=== PATIENT | female | born 1985 ===

== ENCOUNTER 2019-09-03 21:41 | Observation (INO) | payer OTHER ==
[2019-09-03] MEDS ORDERED: ONDANSETRON 4 MG/2 ML VIAL ONE (22:16)
[2019-09-03] MEDS ORDERED: NA CHLORIDE 0.9% 1,000 ML ONE (22:16)
[2019-09-03 22:26] LABS: Absolute Lymphocytes (CBC) 2.4 K/uL (0.7-4.9); Hematocrit 44.7 % (36.0-45.0); Lymphocytes % 23.4 % (15.3-44.8); MPV 8.5 fL (7.6-11.3); RBC Red Blood Cell Count 4.68 M/uL (3.86-4.86)
[2019-09-03] MEDS ORDERED: MORPHINE 4 MG/ML SYR ONE (22:36)
[2019-09-03 22:43] LABS: Albumin 4.2 g/dL (3.4-5.0); Bilirubin Direct 0.1 mg/dL (0-0.2); Bilirubin Total 0.7 mg/dL (0.2-1.0); Potassium 3.4 mmol/L (3.5-5.1); Protein, Total 7.9 g/dL (6.4-8.2)
[2019-09-03 23:05] LABS: Urine Blood NEGATIVE (NEG); Urine Glucose NEGATIVE (NEG); Urine Protein NEGATIVE (NEG); Urine Specific Gravity 1.015 (1.005-1.030); Urine pH 8.5 (5.0-7.0)
--- NOTE | 2019-09-04 00:47 | ER ---
Nurse's Notes [facility] Name: Ting Ohara Age: 33 yrs Sex: Female : 1985 Arrival Date: 09/03/2019 Time: 21:52 Bed 2 Private MD: Diagnosis: Acute appendicitis Presentation: 09/03 21:55 Presenting complaint: Patient states: THIS MORNING I STARTED TO FEEL WEIRD THIS MORNING rv WITH MY BELLY. I JUST ATE BREAKFAST HOPING IT WILL GO AWAY. BUT THE PAIN GOT WORSE ALL THROUGHOUT THE DAY. THE PAST HOUR SHE THREW UP THREE TIMES ALREADY. Transition of care: patient was not received from another setting of care. Onset of symptoms was September 03, 2019 at 09:00. Risk Assessment: Do you want to hurt yourself or someone else? Patient reports no desire to harm self or others. Initial Sepsis Screen: Does the patient meet any 2 criteria? No. Patient's initial sepsis screen is negative. Does the patient have a suspected source of infection? No. Patient's initial sepsis screen is negative. Care prior to arrival: None. 21:55 Method Of Arrival: Ambulatory 21:55 Acuity: ZEN 3 rv Triage Assessment: 22:02 General: Appears in no apparent distress. uncomfortable, Behavior is calm, cooperative. rv Pain: Complains of pain in left upper quadrant, right lower quadrant and left lower quadrant. EENT: No signs and/or symptoms were reported regarding the EENT system. Neuro: Level of Consciousness is awake, alert, obeys commands, Oriented to person, place, time, situation. Cardiovascular: Patient's skin is warm and dry. Respiratory: Airway is patent. GI: Abdomen is flat, Reports lower abdominal pain, upper abdominal pain. : No signs and/or symptoms were reported regarding the genitourinary system. Derm: Skin is intact. Musculoskeletal: No signs and/or symptoms reported regarding the musculoskeletal system. 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 - Social history:: Smoking status: Patient uses tobacco products, 5 STICKS A DAY. - Ebola Screening: : No symptoms or risks identified at this time. Screenin:03 Abuse screen: Denies threats or abuse. Denies injuries from another. Nutritional rv screening: No deficits noted. Tuberculosis screening: No symptoms or risk factors identified. Fall Risk None identified. Assessment: 22:00 General: Appears uncomfortable, Behavior is appropriate for age. Pain: Complains of lp1 pain in left lower quadrant Pain currently is 10 out of 10 on a pain scale. Quality of pain is described as sharp, Pain began gradually, Is continuous, Noted to be grimacing. Neuro: Level of Consciousness is awake, alert, obeys commands. Cardiovascular: Patient's skin is warm and dry. Respiratory: Respiratory effort is even. : No signs and/or symptoms were reported regarding the genitourinary system. EENT: No signs and/or symptoms were reported regarding the EENT system. Derm: Skin is pink, warm \T\ dry. Musculoskeletal: No deficits noted. 22:04 GI: rv 23:15 Reassessment: Patient appears in no apparent distress at this time. Patient and/or lp1 family updated on plan of care and expected duration. Pain level reassessed. 09/04 00:15 Reassessment: Patient and/or family updated on plan of care and expected duration. Pain lp1 level reassessed. Patient states abdominal pain tolerable at this time; Informed of waiting for CT results. 01:06 Reassessment: Patient aware of pending admission;. Pain: Complains of pain in left lp1 lower quadrant Pain currently is 4 out of 10 on a pain scale. Derm: Skin is pink, warm \T\ dry. Vital Signs: 09/03 21:58 BP 119 / 73; Pulse 67; Resp 16; Temp 98.7; Pulse Ox 98% ; Weight 60 kg; Height 5 ft. 2 rv in. (160 cm); Pain 9/10; 23:31 BP 117 / 65; Pulse 56; Resp 16; Pulse Ox 96% on R/A; lp1 09/04 00:28 BP 106 / 62; Pulse 61; Resp 16; Pulse Ox 99% on R/A; lp1 01:06 BP 118 / 65; Pulse 60; Resp 16; Pulse Ox 99% on R/A; Pain 4/10; lp1 09/03 21:58 Body Mass Index 23.44 (60.00 kg, 160 cm) rv ED Course: 09/03 21:52 Patient arrived in ED. cf2 21:58 Triage completed. rv 22:02 Avtar Montelongo PA is PHCP. jmm 22:02 Cesar Burton MD is Attending Physician. jmm 22:03 Patient has correct armband on for positive identification. Placed in gown. Bed in low rv position. Call light in reach. Side rails up X 1. Adult w/ patient. Pulse ox on. NIBP on. 22:03 Patient placed in the treatment room, on a stretcher, on pulse oximetry, Patient rv notified of wait time. 22:04 Tita Kemp, CARL is Primary Nurse. lp1 22:10 Inserted saline lock: 20 gauge in right antecubital area, using aseptic technique. lp1 Blood collected. 22:35 Radiology exam delayed due to lab results not completed at this time. (BUN/Creatinine). nj 23:06 CT Abd/Pelvis - IV Contrast Only In Process Unspecified. EDMS 09/04 00:46 Jose Leiva MD is Hospitalizing Provider. [facility] 01:05 No provider procedures requiring assistance completed. Patient admitted, IV remains in lp1 place. Administered Medications: 09/03 22:22 Drug: Zofran 4 mg Route: IVP; Site: right antecubital; lp1 23:00 Follow up: Response: Marked relief of symptoms lp1 22:43 Drug: morphine 4 mg {Note: RASS 1.} Route: IVP; Site: right antecubital; lp1 23:00 Follow up: Response: Marked relief of symptoms lp1 22:44 Drug: NS 0.9% 1000 ml Route: IV; Rate: 1 bolus; Site: right antecubital; lp1 09/04 01:07 Follow up: IV Status: Completed infusion; IV Intake: 1000ml lp1 01:04 Drug: fentaNYL (PF) 25 mcg Route: IVP; Site: right antecubital; lp1 01:20 Follow up: Response: No adverse reaction; RASS: Alert and Calm (0) lp1 01:04 Drug: Zosyn 3.375 grams Route: IVPB; Infused Over: 60 mins; Site: right antecubital; lp1 01:21 Follow up: IV Status: Infusion continued upon admission lp1 Intake: 01:07 IV: 1000ml; Total: 1000ml. lp1 Outcome: 00:46 Decision to Hospitalize by Provider. [place] 01:05 Condition: stable lp1 01:05 Instructed on the need for admit. 01:19 Admitted to Tele via wheelchair, room 409, with chart, Report called to CARL Dodd lp1 01:44 Patient left the ED. lp1 Signatures: Dispatcher [employer] EDMS Avtar Montelongo PA PA jmm Pena, Laura, RN RN lp1 Gilmar Stanley Ronaldo RN RN Yuko Quintana 2
--- NOTE | 2019-09-04 00:48 | EDPHYS ---
Physician Documentation [facility] Name: Ting Ohara Age: 33 yrs Sex: Female : 1985 Arrival Date: 09/03/2019 Time: 21:52 Bed 2 Private MD: ED Physician Cesar Burton HPI: 09/03 22:05 This 33 yrs old Unknown Female presents to ER via Ambulatory with complaints of m Abdominal Pain. 22:05 The patient presents with abdominal pain. Onset: The symptoms/episode began/occurred jm gradually, today. The symptoms do not radiate. Associated signs and symptoms: Pertinent positives: nausea and vomiting. Modifying factors: The symptoms are alleviated by nothing, the symptoms are aggravated by alcohol, nothing. This is a 42 year old female with no chronic medical conditions that presents to the ED with complaints of left lower abdominal pain beginning this morning and worsening throughout the day. Denies history of ovarian cysts or intraabdominal surgeries. . 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 - Social history:: Smoking status: Patient uses tobacco products, 5 STICKS A DAY. - Ebola Screening: : No symptoms or risks identified at this time. ROS: 22:05 Constitutional: Negative for fever, chills, and weight loss, Cardiovascular: Negative jmm for chest pain, palpitations, and edema, Respiratory: Negative for shortness of breath, cough, wheezing, and pleuritic chest pain. 22:05 Abdomen/GI: Positive for abdominal pain. 22:05 All other systems are negative. Exam: 22:05 Head/Face: atraumatic. Eyes: EOMI, no conjunctival erythema appreciated ENT: Moist jmm Mucus Membranes Neck: Trachea midline, Supple Chest/axilla: Normal chest wall appearance and motion. Cardiovascular: Regular rate and rhythm. No edema appreciated Respiratory: Normal respirations, no respiratory distress appreciated 22:05 Back: Normal ROM Skin: General appearance color normal MS/ Extremity: Moves all extremities, no obvious deformities appreciated, no edema noted to the lower extremities Neuro: Awake and alert, normal gait Psych: Behavior is normal, Mood is normal, Patient is cooperative and pleasant 22:05 Constitutional: The patient appears alert, awake, uncomfortable. 22:05 Abdomen/GI: Inspection: abdomen appears normal, Bowel sounds: normal, Palpation: nontender, moderate abdominal tenderness, in the left lower quadrant. 22:05 Back: ROM is normal. Vital Signs: 21:58 BP 119 / 73; Pulse 67; Resp 16; Temp 98.7; Pulse Ox 98% ; Weight 60 kg; Height 5 ft. 2 rv in. (160 cm); Pain 9/10; 23:31 BP 117 / 65; Pulse 56; Resp 16; Pulse Ox 96% on R/A; lp1 09/04 00:28 BP 106 / 62; Pulse 61; Resp 16; Pulse Ox 99% on R/A; lp1 01:06 BP 118 / 65; Pulse 60; Resp 16; Pulse Ox 99% on R/A; Pain 4/10; lp1 09/03 21:58 Body Mass Index 23.44 (60.00 kg, 160 cm) rv MDM: 09/03 22:06 Patient medically screened. [facility] 09/04 00:12 Data reviewed: vital signs, nurses notes. [facility] 00:45 Counseling: I had a detailed discussion with the patient and/or guardian regarding: the [facility] historical points, exam findings, and any diagnostic results supporting the discharge/admit diagnosis, lab results, radiology results, the need for further work-up and treatment in the hospital. 09/03 22:05 Order name: Basic Metabolic Panel; Complete Time: 22:44 [facility] 09/03 22:05 Order name: CBC with Diff; Complete Time: 22:36 [facility] 09/03 22:05 Order name: Creatinine for Radiology; Complete Time: 22:44 [facility] 09/03 22:05 Order name: Hepatic Function; Complete Time: 22:44 [facility] 09/03 22:05 Order name: Lipase; Complete Time: 22:44 [facility] 09/03 22:56 Order name: Urine Dipstick--Ancillary (enter results); Complete Time: 23:22 cm6 09/03 22:56 Order name: Urine --Ancillary (enter results); Complete Time: 23:22 cm6 09/04 00:57 Order name: Basic Metabolic Panel [facility] 09/04 00:57 Order name: Basic Metabolic Panel [facility] 09/04 00:57 Order name: CBC with Automated Diff EDMS 09/04 00:57 Order name: CBC with Automated Diff EDMS 09/04 00:57 Order name: Lipase [facility] 09/04 00:57 Order name: Lipase [facility] 09/04 00:57 Order name: Liver (Hepatic) Function EDMS 09/03 22:05 Order name: IV Saline Lock; Complete Time: 22:15 [facility] 09/03 22:05 Order name: Labs collected and sent; Complete Time: 22:15 [facility] 09/03 22:05 Order name: Urine Dipstick-Ancillary (obtain specimen); Complete Time: 22:44 [facility] 09/03 22:05 Order name: Urine Test (obtain specimen); Complete Time: 22:44 [facility] 09/03 22:31 Order name: CT Abd/Pelvis - IV Contrast Only [facility] 09/04 00:57 Order name: NPO EDMA 09/04 00:57 Order name: Liver (Hepatic) Function EDMS Administered Medications: 09/03 22:22 Drug: Zofran 4 mg Route: IVP; Site: right antecubital; lp1 23:00 Follow up: Response: Marked relief of symptoms lp1 22:43 Drug: morphine 4 mg {Note: RASS 1.} Route: IVP; Site: right antecubital; lp1 23:00 Follow up: Response: Marked relief of symptoms lp1 22:44 Drug: NS 0.9% 1000 ml Route: IV; Rate: 1 bolus; Site: right antecubital; lp1 09/04 01:07 Follow up: IV Status: Completed infusion; IV Intake: 1000ml lp1 01:04 Drug: fentaNYL (PF) 25 mcg Route: IVP; Site: right antecubital; lp1 01:20 Follow up: Response: No adverse reaction; RASS: Alert and Calm (0) lp1 01:04 Drug: Zosyn 3.375 grams Route: IVPB; Infused Over: 60 mins; Site: right antecubital; lp1 01:21 Follow up: IV Status: Infusion continued upon admission lp1 Disposition: 06:57 Co-signature as Attending Physician, Cesar Burton MD I agree with the assessment and yudelka plan of care. Disposition: 09/04/19 00:46 Hospitalization ordered by Jose Leiva for Inpatient Admission. Preliminary diagnosis is Acute appendicitis. - Bed requested for Telemetry/MedSurg (Inpatient). - Status is Inpatient Admission. lp1 - Condition is Stable. - Problem is new. - Symptoms are unchanged. UTI on Admission? No Signatures: Dispatcher [employer] EDMS Johana Goldsmith, RN RN Cesar Burton MD MD cha Mickail, Joel, PA PA [facility] Tita Kemp RN RN [facility] Sriram Preciado RN RN rv Corrections: (The following items were deleted from the chart) 01:00 00:46 Hospitalization Ordered by Jose Leiva MD for Inpatient Admission. Preliminary diagnosis is Acute appendicitis. Bed requested for Telemetry/MedSurg (Inpatient). Status is Inpatient Admission. Condition is Stable. Problem is new. Symptoms are unchanged. UTI on Admission? No. jmm 01:44 01:00 09/04/2019 00:46 Hospitalization Ordered by Jose Leiva MD for Inpatient lp1 Admission. Preliminary diagnosis is Acute appendicitis. Bed requested for Telemetry/MedSurg (Inpatient). Status is Inpatient Admission. Condition is Stable. Problem is new. Symptoms are unchanged. UTI on Admission? No.
[2019-09-04] MEDS ORDERED: FENTANYL CITR 100 MCG/2 ML ONE ×2 (00:53→13:23)
[2019-09-04] MEDS ORDERED: PIPER/TAZO/NS 3.375gm 3.375 GM/100 ML BAG ONE (00:53)
[2019-09-04] MEDS ORDERED: MORPHINE 4 MG/ML SYR IV PRN ×2 (00:55→14:48)
[2019-09-04] MEDS ORDERED: ACETAMINOPHEN 500 MG TAB PO PRN (00:55)
[2019-09-04] MEDS ORDERED: ONDANSETRON 4 MG/2 ML VIAL IV PRN (00:55)
[2019-09-04] MEDS: PIPER/TAZO/NS 3.375gm 3.375 GM/100 ML BAG IVPB SCH ×3 (01:00→17:04)
[2019-09-04 02:02] VITALS: BMI 24.1
[2019-09-04] MEDS: D5 0.45 NS 1,000 ML IV SCH ×4 (02:06→23:29)
--- NOTE | 2019-09-04 12:55 | RAD REPORT ---
EXAM DESCRIPTION: CT - Abdomen Pelvis W Contrast - 09/04/2019 1:18 am CLINICAL HISTORY: Lower abdominal pain COMPARISON: None. TECHNIQUE: CT ABDOMEN PELVIS WITH IV CONTRAST on 09/03/2019 10:31 PM MEDICAL DEVICE This exam was performed according to our departmental dose-optimization program, which includes autom ated exposure control, adjustment of the mA and/or kV according to patient size and/or use of iterati ve reconstruction technique. FINDINGS: Lower lungs are clear. Abdomen: The liver is normal in appearance. There is no biliary dilatation. Gallbladder is normal in appearance. The pancreas and spleen are normal in appearance. The adrenal glands and kidneys are unre markable. Abdominal aorta is normal in course and caliber without aneurysm. There is no free air. There is no r etroperitoneal adenopathy. Pelvis: There is no bowel obstruction. Urinary bladder is unremarkable. There is small amount of free pelvic fluid. Uterus is normal in size. Appendix is fluid-filled and measures 1.1 cm distally. There is no significant surrounding inflammation. Skeleton: There are no acute osseous findings. No suspicious bony lesions. IMPRESSION: Suspect early acute appendicitis. Electronically signed by: Frank Dotson MD 09/04/2019 12:05 AM MEDICAL DEVICE Due to temporary technical issues with the PACS/Fluency reporting system, reports are being signed by the in house radiologist as a courtesy to ensure prompt reporting. The interpreting radiologist is f ully responsible for the content of the report.
[2019-09-04] MEDS ORDERED: LIDOCAINE 2% MPF 5 ML VIAL ONE (13:10)
[2019-09-04] MEDS ORDERED: ONDANSETRON 4 MG/2 ML VIAL ONE ×2 (13:11→13:25)
[2019-09-04] MEDS ORDERED: Ringers Lactate 1,000 ML IV ONE (13:19)
[2019-09-04] MEDS ORDERED: SUCCINYLCHOLINE 20 MG/ML (10 ML) IV ONE (13:21)
[2019-09-04] MEDS ORDERED: PROPOFOL 200 MG/20 ML VIAL IV ONE (13:23)
[2019-09-04] MEDS ORDERED: MIDAZOLAM HCL 2 MG/2 ML INJ ONE (13:23)
[2019-09-04] MEDS ORDERED: ROCURONIUM 50 MG/5 ML VIAL IV ONE (13:23)
--- NOTE | 2019-09-04 13:31 | P.HP ---
Date of Service: 09/04/19 PC: This 33-year-old female presents emergency room with severe abdominal pain for diagnosis and treatment. HPC: Patient and issues experiencing severe right lower quadrant abdominal pain. Her whenever she tried to walk. Came to the emergency room to be evaluated. This morning she says after she got pain medicine she feels somewhat better. PMH: Negative PSHx: Denies prior surgeries SOC: No known allergies SYS REVIEW: No cough, wheeze, shortness of breath. No chest pain or palpitations. Denies any urinary complaints. O/E awake alert comfortable at the moment vital Signs are stay HEENT: Within normal limits Chest: Clear ABD: Tender in the right lower quadrant LOCO: Intact DATA: Within normal limits IMPRESSION: CT scan shows a large her appendix is us with early appendicitis PLAN: I will take her to the operating room for laparoscopic appendectomy. The risks of this procedure have been discussed. The possibility of bleeding, infection, injury to bowel and surrounding structures were explained. The possibility of abscess formation wound infection and need for further surgeries and procedures was explained. She understands and wants to proceed.
[2019-09-04] MEDS ORDERED: NEOSTIGMINE 1 MG/ML -5 ML ONE (14:30)
[2019-09-04] MEDS ORDERED: GLYCOPYRROLATE 0.2 MG/ML SYR ONE (14:30)
--- NOTE | 2019-09-04 14:45 | P.OP ---
Preoperative diagnosis: Acute abdomen Postoperative diagnosis: Acute appendicitis Primary procedure: Laparoscopic appendectomy Anesthesia: General Estimated blood loss: Less than 10 cc Specimen: Depend Operative Technique: The patient was brought to the operating room, placed supine on the table. After the induction of adequate general endotracheal anesthesia, the area of the abdomen was prepped with a DuraPrep solution, and she was draped in the usual aseptic manner. A subumbilical incision was made. This was brought down through the skin and subcutaneous tissue. The Visiport was cavity and created pneumoperitoneum to approximately 12 mm of mercury. Under direct vision a 5 mm trocar was placed in the lower midline and another 5 mm in the right upper quadrant. The patient was then positioned in Trendelenburg and rolled to the left side. We were able to visualize right lower quadrant. We could see an acutely inflamed appendix. It had adhesions to the distal ileum, as well as to the cecum itself. The appendix was then gently dissected from the surrounding structures. The junction of the appendix with the with the cecum was identified. An opening was made in the mesentery of the appendix. The 10 mm trocar was now converted to a 12 with the camera moved to the right upper port with a 5 mm view. The linear Stapler was introduced into the peritoneal cavity. It was placed across the base of the appendix and fired. A vascular reload was then placed into the Stapler. The mesentery of the appendix was then taken down. The appendix having been was placed into an Endo-Catch, brought out through the umbilical port site. Attention was turned back towards the right lower quadrant. The area was gently irrigated with the saline solution. The effluent was aspirated. 0.25% Marcaine was aerosolize into the right lower quadrant. Attention was turned towards the umbilical trocar. Using the endo- close absorbable sutures were placed to close the defect. The patient was now returned to the neutral position on the OR table. The pneumoperitoneum was collapsed, the umbilical sutures tied, and josé luis applied to the skin. At the end of the procedure the patient was in stable condition and sent to the recovery room. Needle sponge and instrument count were correct. 1 specimen was sent for histopathology. Sterile dressings had been applied. Complications: None Transferred to: Recovery Room Condition: Good
[2019-09-04] MEDS: HYDROCODONE/APAP 7.5/325 MG TAB PO PRN ×2 (17:02→22:04)
[2019-09-05] MEDS: PIPER/TAZO/NS 3.375gm 3.375 GM/100 ML BAG IVPB SCH ×2 (00:01→08:00)
[2019-09-05] MEDS: D5 0.45 NS 1,000 ML IV SCH (08:01)
[2019-09-05 08:06] VITALS: O2SAT 98
[2019-09-05 12:45] VITALS: BP 113/54; TEMP 98.4
== END 2019-09-05 13:07 | disposition home or self-care (01) ==
LOC: ER 21:41 → ERHOLD 09-04 00:54 → INTOOBSV 09-04 00:54 → 4TH 09-04 01:20
PROVIDERS: ADMIT Surgery; ATTEND Surgery
PROC: 0DTJ4ZZ Resection of Appendix, Percutaneous Endoscopic Approach (ICD-10-PCS; principal; 2019-09-04 09:15)
DX: K35.80 Unspecified acute appendicitis (principal)
CPT/HCPCS: 96365; 96361; 85025; 80048; 36415; 81025; 80076; 88305; 81003; 83690; 74177; 96375; 99285; 44970; Q9967; J2704; J0330; J2250; J3010 ×2; J2543 ×2; J2710; G0378 ×4; J7799 ×4; J7120; J7030; J2405 ×3; 88304